=== PATIENT | female | born 1985 | race Caucasian/White ===

== ENCOUNTER 2018-02-07 14:09 | Emergency (ER) | payer MEDICARE ==
[~2018-02-07] VITALS: Ht 175.3 cm; Wt 84.1 kg
[2018-02-07 14:16] VITALS: Ht 175.3 cm; Wt 84.1 kg
[2018-02-07] MEDS ORDERED: LANTUS SOL100 UNIT/1 SC (14:17)
[2018-02-07] MEDS ORDERED: PRISTIQ50 MG PO (14:17)
[2018-02-07] MEDS ORDERED: NOVOLOG100 U/M1 SC (14:17)
[2018-02-07] MEDS ORDERED: NEURONTIN800 MG PO (14:18)
[2018-02-07] MEDS ORDERED: INDERAL 40 MG T40 MG PO (14:18)
[2018-02-07] MEDS ORDERED: SEROQUEL200 MG PO (14:18)
[2018-02-07] MEDS ORDERED: MINIPRESS1 MG PO (14:19)
[2018-02-07] MEDS ORDERED: PREDNISONE20 MG PO (15:36)
[2018-02-07] MEDS ORDERED: TRIDERM90 GM TP (15:36)
[2018-02-07] MEDS ORDERED: VIBRAMYCIN 100100 MG PO (15:38)
[2018-02-07 16:29] VITALS: BP 112/68
== END 2018-02-07 16:32 | disposition home or self-care (01) ==
LOC: D.ER 14:09
DX: S40.862A Insect bite (nonvenomous) of left upper arm, initial encounter (principal); S40.861A Insect bite (nonvenomous) of right upper arm, initial encounter; S80.862A Insect bite (nonvenomous), left lower leg, initial encounter; S80.861A Insect bite (nonvenomous), right lower leg, initial encounter; W57.XXXA Bitten or stung by nonvenomous insect and other nonvenomous arthropods, initial encounter; Y93.89 Activity, other specified; Y92.019 Unspecified place in single-family (private) house as the place of occurrence of the external cause; E11.9 Type 2 diabetes mellitus without complications; F17.200 Nicotine dependence, unspecified, uncomplicated

== ENCOUNTER 2018-02-12 15:50 | Emergency (ER) | payer MEDICARE ==
[~2018-02-12] VITALS: Ht 175.3 cm; Wt 84.1 kg
[~2018-02-12 15:50] MED LIST: INDERAL 40 MG T40 MG PO; LANTUS SOL100 UNIT/1 SC; MINIPRESS1 MG PO; NEURONTIN800 MG PO; NOVOLOG100 U/M1 SC; PREDNISONE20 MG PO; PRISTIQ50 MG PO; SEROQUEL200 MG PO; TRIDERM90 GM TP; VIBRAMYCIN 100100 MG PO
[2018-02-12 16:08] VITALS: Ht 175.3 cm; Wt 84.1 kg
[2018-02-12] MEDS ORDERED: MINIPRESS1 MG PO (18:57)
[2018-02-12] MEDS ORDERED: SEROQUEL200 MG PO (18:57)
[2018-02-12] MEDS ORDERED: AMBIEN10 MG PO (18:57)
[2018-02-12] MEDS ORDERED: TRILEPTAL600 MG PO (18:57)
[2018-02-12] MEDS ORDERED: TOPAMAX200 MG PO (18:57)
[2018-02-12] MEDS ORDERED: PRISTIQ50 MG PO (18:57)
[2018-02-12 19:07] VITALS: BP 116/67
== END 2018-02-12 19:07 | disposition home or self-care (01) ==
LOC: D.ER 15:50
DX: I10 Essential (primary) hypertension (principal); F31.9 Bipolar disorder, unspecified; G43.909 Migraine, unspecified, not intractable, without status migrainosus; E11.9 Type 2 diabetes mellitus without complications; G40.909 Epilepsy, unspecified, not intractable, without status epilepticus; F17.200 Nicotine dependence, unspecified, uncomplicated

== ENCOUNTER 2018-02-21 13:34 | Emergency (ER) | payer MEDICARE ==
[~2018-02-21] VITALS: Ht 175.3 cm; Wt 84.1 kg
[~2018-02-21 13:34] MED LIST changes: +AMBIEN10 MG PO; +TOPAMAX200 MG PO; +TRILEPTAL600 MG PO
[2018-02-21 13:43] VITALS: Ht 175.3 cm; Wt 84.1 kg
[2018-02-21] MEDS ORDERED: INDERAL 40 MG T40 MG PO (14:29)
[2018-02-21] MEDS ORDERED: IBUPROFEN800 MG PO (14:43)
[2018-02-21] MEDS ORDERED: KLONOPIN1 MG PO (15:25)
[2018-02-21 15:32] VITALS: BP 136/80
== END 2018-02-21 15:33 | disposition home or self-care (01) ==
LOC: D.ER 13:34
DX: I49.8 Other specified cardiac arrhythmias (principal); I10 Essential (primary) hypertension; F41.1 Generalized anxiety disorder; E11.9 Type 2 diabetes mellitus without complications; F17.200 Nicotine dependence, unspecified, uncomplicated

== ENCOUNTER 2018-03-13 14:01 | Emergency (ER) | payer MEDICARE ==
[~2018-03-13] VITALS: Ht 175.3 cm; Wt 82.3 kg
[~2018-03-13 14:01] MED LIST changes: +IBUPROFEN800 MG PO; +KLONOPIN1 MG PO
[2018-03-13 14:11] VITALS: BP 117/88; Ht 175.3 cm; Wt 82.3 kg
== END 2018-03-13 16:41 | disposition left against medical advice (07) ==
LOC: D.ER 14:01
DX: G89.29 Other chronic pain (principal); F11.11 Opioid abuse, in remission; E11.9 Type 2 diabetes mellitus without complications; F17.200 Nicotine dependence, unspecified, uncomplicated

== ENCOUNTER 2019-07-19 09:01 | Emergency (ER) | payer MEDICARE ==
[~2019-07-19] VITALS: Ht 175.3 cm; Wt 81.8 kg
[2019-07-19 09:24] VITALS: BP 123/82; Ht 175.3 cm; Wt 81.8 kg
== END 2019-07-19 10:30 | disposition left against medical advice (07) ==
LOC: D.ER 09:01
DX: H92.03 Otalgia, bilateral (principal); Y04.2XXA Assault by strike against or bumped into by another person, initial encounter; Y93.9 Activity, unspecified; Y92.9 Unspecified place or not applicable; Z53.29 Procedure and treatment not carried out because of patient's decision for other reasons; E11.40 Type 2 diabetes mellitus with diabetic neuropathy, unspecified; Z79.4 Long term (current) use of insulin